=== PATIENT | female | born 1975 | race Caucasian/White ===

== ENCOUNTER 2019-11-18 17:30 | Observation (INO) | payer BC ==
[2019-11-18] MEDS ORDERED: SODIUM CHLORIDE 0.9% 500 ML 500 ML IV ONE (17:44)
[2019-11-18] MEDS ORDERED: NALOXONE 0.4 MG/ML 1 ML VIAL IV PRN (18:14)
--- NOTE | 2019-11-18 18:16 | ED ---
Recheck HPI - General Chief Complaint: Recheck/Abnormal Lab/Rx Stated Complaint: Narcotics Withdrawl Time Seen by Provider: 11/18/19 17:40 Source: patient, EMS Mode of arrival: EMS Limitations: no limitations - History of Present Illness Initial Comments: 44-year-old female was sent as a transfer that was accepted by Dr. Forde to our facility for prolonged QT for cardiac monitoring. patient presented for abdominal discomfort, nausea, vomiting, agitation. She states she recently stopped taking methadone to transition to suboxone. Patient states that this feels identical to when she has withdrew in the past. Patient initial EKG reviewed and was very poor quality with poor baseline for proper evaluation. Patient CMp WNL. No magnesium was drawn. CBC mild leukocytosis on lab review. Patient denies use of other drugs/or attempt at overdose. Patient upon arrival appears agitated, moving around bed attempting to get comfortable. Otherwise not vomiting and does not appears toxic. - Related Data Home Medications Medication Instructions Recorded Confirmed Buprenorphine HCl/Naloxone HCl 1 film SL TID 11/18/19 11/18/19 [Buprenorp-Nalox 8-2 mg Sl Film] Allergies Allergy/AdvReac Type Severity Reaction Status Date / Time aspirin Allergy Nausea & Verified 11/18/19 18:24 Vomiting Review of Systems ROS Statement: Those systems with pertinent positive or pertinent negative responses have been documented in the HPI. ROS Other: All systems not noted in ROS Statement are negative. Past Medical History Additional Past Medical History / Comment(s): cervical degeneration, R eye prostetic lens Smoking Status: Current every day smoker Past Alcohol Use History: None Reported Past Drug Use History: Marijuana - Past Family History Mother Family Medical History: No Reported History General Exam - General Exam Comments Initial Comments: General: The patient is awake and alert, appears agitated, cant get in a comfortable position Eye: +3 mm pupils are equal, round and reactive to light, extra-ocular movements are intact. No nystagmus. There is normal conjunctiva bilaterally. No signs of icterus. Cardiovascular: There is a regular rate and rhythm. No murmur, rub or gallop is appreciated. Respiratory: Lungs are clear to auscultation, respirations are non-labored, breath sounds are equal. No wheezes, stridor, rales, or rhonchi. Gastrointestinal: Soft, non-distended, non-tender abdomen without masses or organomegaly noted. There is no rebound or guarding present. Musculoskeletal: Normal ROM, no tenderness. Strength 5/5. Sensation intact. Pulses equal bilaterally 2+. Neurological: A&O x 3. CN II-XII intact grossly, There are no obvious motor or sensory deficits. Coordination appears grossly intact. Speech is normal. Skin: Skin is warm and dry and no rashes or lesions are noted. Psychiatric: Cooperative, agitated Limitations: no limitations Course Vital Signs 11/18/19 11/18/19 17:34 18:31 Temperature 98.5 F 98 F Pulse Rate 71 Pulse Rate [ 73 Pulse Oximetery ] Respiratory 22 16 Rate Blood Pressure 131/69 Blood Pressure 113/85 [Left Arm] O2 Sat by Pulse 97 97 Oximetry Medical Decision Making - Medical Decision Making Discussed case with Dr Forde who was accepting physician on case, he recommended admission, with telemetry and magenisum levels. Mag WNL. Labs reviewed from outside facility. Our repeat EKG WNL. No QT prolongation. ABdomen soft nontender. Patient agitated. Patient not actively vomiting. Patient Will be admitted for symptomatic control. patient on telemetry. Elsy THOMAS covering for Dr Palma accepted the admission. Disposition Clinical Impression: Opioid use with withdrawal, Nausea, Abdominal pain, Hx of prolonged Q-T interval on ECG Disposition: ADMITTED IP TO THIS HOSP Condition: Stable Is patient prescribed a controlled substance at d/c from ED?: No Time of Disposition: 18:15 Decision to Admit Reason: Admit from EC Decision Date: 11/18/19 Decision Time: 18:16
[2019-11-18] MEDS: SODIUM CHLORIDE 0.9% 1,000 ML IV SCH (21:35)
[2019-11-18] MEDS ORDERED: ACETAMINOPHEN TAB 325 MG TAB PO PRN (22:40)
[2019-11-19] MEDS: SODIUM CHLORIDE 0.9% 1,000 ML IV SCH ×3 (05:35→21:00)
[2019-11-19 07:54] LABS: African American GFR (CKD) >90 (>60 ml/min/1.73 sqM); Anion Gap 5 mmol/L; Blood Urea Nitrogen 12 mg/dL (7-17); Calcium 8.4 mg/dL (8.4-10.2); Carbon Dioxide 24 mmol/L (22-30); Chloride 111 mmol/L (98-107); Glucose 101 mg/dL (74-99); Non-African American GFR(CKD) >90 (>60 ml/min/1.73 sqM); Potassium 3.7 mmol/L (3.5-5.1); Sodium 140 mmol/L (137-145)
[2019-11-19 08:03] LABS: Basophils % (A) 0 %; Eosinophils # (A) 0.1 k/uL (0-0.7); Eosinophils % (A) 1 %; HCT 38.3 % (34.0-46.0); Lymphocytes # (A) 1.8 k/uL (1.0-4.8); Lymphocytes % (A) 15 %; MCH 31.6 pg (25.0-35.0); MCHC 34.1 g/dL (31.0-37.0); MCV 92.8 fL (80.0-100.0); Mean Platelet Volume 7.7; Monocytes # (A) 0.7 k/uL (0-1.0); Monocytes % (A) 6 %; Neutrophils # (A) 9.4 k/uL (1.3-7.7); Neutrophils % (A) 77 %; Platelet Count 311 k/uL (150-450); RBC 4.12 m/uL (3.80-5.40); RDW 12.3 % (11.5-15.5); WBC 12.1 k/uL (3.8-10.6)
[2019-11-19] MEDS ORDERED: KETOROLAC 30 MG/ML 1 ML VIAL IVP PRN (08:46)
[2019-11-19] MEDS ORDERED: ONDANSETRON 4 MG/2 ML VIAL IVP PRN (08:52)
[2019-11-19] MEDS ORDERED: traZODone HCL 50 MG TAB PO PRN (08:53)
[2019-11-19] MEDS ORDERED: hydrOXYzine HCL 25 MG TAB PO PRN ×2 (08:53→14:47)
[2019-11-19] MEDS ORDERED: LOPERAMIDE 2 MG CAP PO PRN (08:53)
[2019-11-19] MEDS ORDERED: cloNIDine HCL 0.1 MG TAB PO PRN (08:54)
--- NOTE | 2019-11-19 09:04 | P.HPIM ---
History of Present Illness This is a pleasant 44 years old female with past medical history of generalized body aches on methadone, cigarette smoker. She presents because of signs symptoms of opioid withdrawal. She went to see her new PCP Dr. Aguiar so she can switch her methadone and Suboxone, after Cosme advised her to take the Suboxone after last dose of methadone within 8-12 hours, she waited for 16 hours and by the time she started feeling unwell and she took the Suboxone which made her worse, she was complaining of from nausea and vomiting several times, agitated, restless and stomach pain, leg pain and pain all over her body with some sweatin g. She denies change in her bowel movements or chest pain or dyspnea or dizziness or palpitation. No dysuria. On admission her Vitas looks stable. Labs showing mild leukocytosis but BMP is unremarkable. EKG showing sinus rhythm with marked sinus arrhythmia at 76 bpm, QTC 418 which is not prolonged, no significant ST-T changes M APS was checked and patient was prescribed Suboxone 21 films. Patient was instructed if she can bring her Suboxone from home as it's not available from the hospital and she agrees Patient does not want Tylenol on [place] as she wants persistent cleared off opioids. Also she says she is ALLERGIC to aspirin and she got rash, I offered to give her Toradol but she was concerned about her ALLERGY. In the meantime we'll continue with taking her symptomatically with clonidine, Pepcid, Atarax, Imodium, Zofran and trazodone as needed Review of Systems CONSTITUTIONAL: No fever, no malaise, no fatigue. HEENT: No recent visual problems or hearing problems. Denied any sore throat. CARDIOVASCULAR: No orthopnea, PND, no palpitations, no syncope. PULMONARY: No shortness of breath, no cough, no hemoptysis. GASTROINTESTINAL: No diarrhea, no nausea, no vomiting, no abdominal pain. Normoactive bowel sounds. NEUROLOGICAL: No headaches, no weakness, no numbness. HEMATOLOGICAL: Denies any bleeding or petechiae. GENITOURINARY: Denies any burning micturition, frequency, or urgency. MUSCULOSKELETAL/RHEUMATOLOGICAL: Denies any joint pain, swelling, or any muscle pain. ENDOCRINE: Denies any polyuria or polydipsia. Past Medical History Additional Past Medical History / Comment(s): cervical degeneration, R eye prostetic lens History of Any Multi-Drug Resistant Organisms: None Reported Additional Past Surgical History / Comment(s): gallbladder surgery in 2000 Past Anesthesia/Blood Transfusion Reactions: No Reported Reaction Smoking Status: Current every day smoker Past Alcohol Use History: None Reported Past Drug Use History: Marijuana - Past Family History Mother Family Medical History: No Reported History Medications and Allergies Home Medications Medication Instructions Recorded Confirmed Type Buprenorphine HCl/Naloxone HCl 1 film SL TID 11/18/19 11/18/19 History [Buprenorp-Nalox 8-2 mg Sl Film] Allergies Allergy/AdvReac Type Severity Reaction Status Date / Time aspirin Allergy Nausea & Verified 11/18/19 18:24 Vomiting latex Allergy Rash/Hives Verified 11/19/19 03:27 Physical Exam Vitals: Vital Signs Temp Pulse Pulse Resp BP BP Pulse Ox 11/19/19 03:00 98.1 F 84 18 126/70 99 11/18/19 21:00 98.3 F 83 22 109/63 98 11/18/19 18:31 98 F 73 16 113/85 97 11/18/19 17:34 98.5 F 71 22 131/69 97 Intake and Output 11/18/19 11/19/19 11/19/19 22:59 06:59 14:59 Intake Total 500 1000 Balance 500 1000 Intake: IV 500 1000 Sodium Chloride 0.9% 427 464 5007 ml 500 ml @ 999 mls/hr IV .Q31M ONE Rx#:[id number] Other: Voiding Method Toilet Toilet # Voids 1 1 Weight 72.575 kg GENERAL: The patient is alert and oriented x3, not in any acute distress. Well developed, well nourished. HEENT: Pupils are round and equally reacting to light. EOMI. No scleral icterus. No conjunctival pallor. Normocephalic, atraumatic. No pharyngeal erythema. No thyromegaly. CARDIOVASCULAR: S1 and S2 present. No murmurs, rubs, or gallops. PULMONARY: Chest is clear to auscultation, no wheezing or crackles. ABDOMEN: Soft, nontender, nondistended, normoactive bowel sounds. No palpable organomegaly. MUSCULOSKELETAL: No joint swelling or deformity. EXTREMITIES: No cyanosis, clubbing, or pedal edema. NEUROLOGICAL: Gross neurological examination did not reveal any focal deficits. SKIN: No rashes. No petechiae Results CBC & Chem 7: 11/19/19 06:44 11/19/19 06:44 Labs: Abnormal Lab Results - Last 24 Hours (Table) 11/19/19 11/19/19 Range/Units 06:44 06:44 WBC 12.1 H (3.8-10.6) k/uL Neutrophils # 9.4 H (1.3-7.7) k/uL Chloride 111 H (98-107) mmol/L Glucose 101 H (74-99) mg/dL Thrombosis Risk Factor Assmnt - Choose All That Apply Each Factor Represents 1 point: Age 41-60 years, Obesity (BMI >25) Thrombosis Risk Factor Assessment Total Risk Factor Score: 2 Thrombosis Risk Factor Assessment Level: Low Risk Assessment and Plan Assessment: opioid withdrawal Generalized body pain on methadone, patient wants to switch her to Suboxone Nicotine dependence Plan: This is a pleasant 42 years old female who presents with opioid withdrawal, we'll treat her symptomatically. Continue with IV fluids. We'll consult psychiatrist. Restart Suboxone once the patient brings from home Patient is counseled about her smoking and she agrees to quit and was nicotine patch Labs and medication were reviewed.. Continue same treatment. Continue with symptomatic treatment. Resume home medication. Monitor lytes and vitals. DVT and GI prophylaxis. Further recommendations of the clinical course of the patient DVT prophylaxis: Subcutaneous heparin GI Prophylaxis: Pepcid Prognosis is guarded
[2019-11-19] MEDS: NICOTINE 21MG/24HR PATCH TRANSDERM SCH (10:31)
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
[2019-11-19] MEDS ORDERED: LORazepam 1 MG TAB PO PRN (14:39)
[2019-11-19] MEDS: FAMOTIDINE 20 MG/2 ML VIAL IV SCH (21:01)
[2019-11-19] MEDS: HEPARIN SODIUM,PORCINE 5,000 UNIT/ML 1 ML VIAL SQ SCH (21:01)
[2019-11-20 04:31] VITALS: RESP 16
[2019-11-20 05:36] LABS: Basophils % (A) 0 %; Eosinophils # (A) 0.1 k/uL (0-0.7); Eosinophils % (A) 1 %; HCT 40.5 % (34.0-46.0); HGB 13.8 gm/dL (11.4-16.0); Lymphocytes # (A) 2.6 k/uL (1.0-4.8); Lymphocytes % (A) 24 %; MCH 31.5 pg (25.0-35.0); MCV 92.7 fL (80.0-100.0); Mean Platelet Volume 7.7; Monocytes # (A) 0.6 k/uL (0-1.0); Monocytes % (A) 6 %; Neutrophils # (A) 7.4 k/uL (1.3-7.7); Neutrophils % (A) 68 %; Platelet Count 299 k/uL (150-450); RBC 4.37 m/uL (3.80-5.40); RDW 12.1 % (11.5-15.5); WBC 10.9 k/uL (3.8-10.6)
[2019-11-20 05:57] LABS: African American GFR (CKD) >90 (>60 ml/min/1.73 sqM); Anion Gap 8 mmol/L; Blood Urea Nitrogen 10 mg/dL (7-17); Calcium 8.7 mg/dL (8.4-10.2); Carbon Dioxide 23 mmol/L (22-30); Chloride 107 mmol/L (98-107); Glucose 87 mg/dL (74-99); Magnesium 2.2 mg/dL (1.6-2.3); Non-African American GFR(CKD) >90 (>60 ml/min/1.73 sqM); Potassium 3.5 mmol/L (3.5-5.1); Sodium 138 mmol/L (137-145)
[2019-11-20 08:13] VITALS: BP 93/40; PULSE 61; TEMP 98.4
[2019-11-20] MEDS: NICOTINE 21MG/24HR PATCH TRANSDERM SCH (08:30)
[2019-11-20] MEDS: FAMOTIDINE 20 MG/2 ML VIAL IV SCH (08:31)
[2019-11-20] MEDS: HEPARIN SODIUM,PORCINE 5,000 UNIT/ML 1 ML VIAL SQ SCH (08:33)
[2019-11-20] MEDS ORDERED: METOCLOPRAMIDE 10 MG TAB PO PRN (10:06)
--- NOTE | 2019-11-20 10:15 | P.DS ---
Providers Date of admission: 11/18/19 17:44 Attending physician: Yola Palma Consults: 11/19/19 08:56 Consult Physician Routine Consulting Provider: Kaushik Erickson Reason/Comments: saboxone management Do you want consulting provider notified?: Yes Primary care physician: Stated None Hospital Course: Diagnoses: opioid withdrawal Generalized body pain was on methadone, patient is switched her to Suboxone by her PCP Dr. Aguiar Nicotine dependence Hospital course: This is a pleasant 44 years old female with past medical history of generalized body aches on methadone, cigarette smoker. She presents because of signs symptoms of opioid withdrawal. Which haven't in the process of transitioning her from methadone to Suboxone, she went into opioid withdrawal and she presents with filling restless and agitated, with nausea vomiting and diarrhea and generalized body aches, lacrimation and nasal congestion. Patient was admitted to the hospital and treated with IV fluids, she was treated symptomatically with Imodium, Atarax and Ativan, she did not need clonidine or trazodone. Zofran admit her vomiting itself so it was changed to Reglan. Patient Suboxone (provided by the patient own medicine) was restarted as twice daily, and it can be increased to 3 times a day as per recommendation by her PCP Dr. Aguiar, patient tolerated that well and her symptoms significantly improved, she still have some mild symptoms like mild diarrhea, mild nasal congestion and abdominal discomfort however it's much improved since she came in, her restlessness is improved significantly although she still felt anxious. Extent patient to continue to improve. Patient herself want to go home and follow-up with her PCP, she told me she has an appointment with Dr. Aguiar this coming Sunday that she intends to follow up with Patient also has been evaluated by psychiatrist, I spoke with Dr. Browne who cleared her for discharge today Problems and management plan were discussed with the patient and he verbalized understanding and acceptance Patient was found stable and can be discharged home however he needs follow-up as an outpatient. Patient was instructed to follow up with PCP within one week a nd patient agrees Gen: patient is a AAOx3, no distress CVS: S1-S2, RRR, no murmur Lungs: B/L CTA, no wheezing Abdomen: soft, no distention, no tenderness, positive bowel sounds Extremity: no leg edema or induration Time spent more than 35 minutes Patient Condition at Discharge: Stable Plan - Discharge Summary Discharge Rx Participant: No New Discharge Prescriptions: New Nicotine 21Mg/24Hr Patch [Habitrol] 1 patch TRANSDERM DAILY #7 patch Loperamide [Imodium] 2 mg PO QID PRN #15 cap PRN Reason: Diarrhea Famotidine [Pepcid] 20 mg PO BID 7 Days #14 tablet Metoclopramide [Reglan] 10 mg PO AC-TID PRN #6 tab PRN Reason: Nausea And Vomiting Acetaminophen Tab [Tylenol] 650 mg PO Q6HR PRN tab PRN Reason: Fever And/ Or Pain Continue Buprenorphine HCl/Naloxone HCl [Buprenorp-Nalox 8-2 mg Sl Film] 1 film SL TID Discharge Medication List Buprenorphine HCl/Naloxone HCl [Buprenorp-Nalox 8-2 mg Sl Film] 1 film SL TID 11/18/19 [History] Acetaminophen Tab [Tylenol] 650 mg PO Q6HR PRN tab 11/20/19 [Rx] Famotidine [Pepcid] 20 mg PO BID 7 Days #14 tablet 11/20/19 [Rx] Loperamide [Imodium] 2 mg PO QID PRN #15 cap 11/20/19 [Rx] Metoclopramide [Reglan] 10 mg PO AC-TID PRN #6 tab 11/20/19 [Rx] Nicotine 21Mg/24Hr Patch [Habitrol] 1 patch TRANSDERM DAILY #7 patch 11/20/19 [Rx] Follow up Appointment(s)/Referral(s): Dagmar Malloy MD [REFERRING] - 1 Week (Follow-up on your appointment this coming Sunday as you informed the medical team, otherwise call and make an appointment within 1 week) None,Stated [Primary Care Provider] - 1-2 days Activity/Diet/Wound Care/Special Instructions: Diet as tolerated Activity is limited to till you see your doctor
[2019-11-20] MEDS ORDERED: FAMOTIDINE 20 MG TAB PO SCH (21:00)
== END 2019-11-20 12:21 | disposition home or self-care (01) ==
LOC: EC 17:30 → 3NCARDOBS 17:44
PROVIDERS: ADMIT Hospitalist; ATTEND Hospitalist
DX: F11.23 Opioid dependence with withdrawal (principal); T40.0X5A Adverse effect of opium, initial encounter; R11.2 Nausea with vomiting, unspecified; R10.9 Unspecified abdominal pain; R45.1 Restlessness and agitation; R19.7 Diarrhea, unspecified; R09.81 Nasal congestion; H04.9 Disorder of lacrimal system, unspecified; F41.9 Anxiety disorder, unspecified; D72.829 Elevated white blood cell count, unspecified; M50.30 Other cervical disc degeneration, unspecified cervical region; F17.210 Nicotine dependence, cigarettes, uncomplicated; E66.9 Obesity, unspecified; Z68.25 Body mass index [BMI] 25.0-25.9, adult; Z71.6 Tobacco abuse counseling; Z79.899 Other long term (current) drug therapy; Z96.1 Presence of intraocular lens; Z86.79 Personal history of other diseases of the circulatory system; Z88.6 Allergy status to analgesic agent; Z91.040 Latex allergy status
CPT/HCPCS: 93005 ×2; 96361; 96372 ×2; 96374; 96375; 96376; 99285; 80048 ×2; 83735 ×2; 85025 ×2; 84703; G0378 ×3; S4990 ×2; J1644 ×2; J2405

== ENCOUNTER → 2021-02-25 | Outpatient (CLI) | payer BC ==
--- NOTE | 2021-02-25 16:45 | CT ---
EXAMINATION TYPE: CT sinus wo con DATE OF EXAM: 02/25/2021 COMPARISON: None HISTORY: 45-year-old female Chronic sinusitis. CT DLP: 636.4 mGycm Automated exposure control for dose reduction was used. TECHNIQUE: Noncontrast axial views of the paranasal sinuses were obtained. Coronal reconstructions pe rformed. FINDINGS: PARANASAL SINUSES: The frontal, ethmoid, maxillary and sphenoid sinuses are clear and well pneumatized. There is no mucosal thickening or air-fluid level. Reactive desirae- osteogenesis is not seen. There is no destruction of the osseous kimbrough of the paranasal sinuses. THE NASAL CAVITY: The osteomeatal complexes are patent. Rightward nasal septal deviation. The imaged brain and left orbit are normal in appearance. 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 Mastoid air cells and middle ear cavities are well pneumatized. Reformatted images confirm above findings. IMPRESSION: Rightward nasal septal deviation. Otherwise, no paranasal sinus disease appreciated. Right globe pros thesis.
== END | disposition home or self-care (01) ==
LOC: RADCTMAIN 15:36
PROVIDERS: ATTEND Otolaryngology
DX: J34.2 Deviated nasal septum (principal)
CPT/HCPCS: 70486

== ENCOUNTER 2021-03-08 07:26 | Day surgery (SDC) | payer BC ==
[2021-03-04 10:15] VITALS: BMI 24.0
[~2021-03-08 07:26] MED LIST: DEXAMETHASONE SOD PHOSPHATE 4 MG/ML 1 ML VIAL IV ONE; HYDROmorphone 0.5 MG/0.5 ML SYRINGE IVP PRN; LACTATED RINGERS 1,000 ML IV SCH; ONDANSETRON 4 MG/2 ML VIAL IVP ONE; Pre Op ABX Message 1 EACH MISC MISCELLANE ONE
[2021-03-08] MEDS ORDERED: LIDOCAINE 1% (10MG/ML) FOR IV START INTRADERMA ONE (08:07)
[2021-03-08] MEDS ORDERED: LIDOCAINE 1% INJ 10MG/ML (20 ML MDV) ONE (09:32)
[2021-03-08] MEDS ORDERED: MIDAZOLAM 2 MG/2 ML VIAL ONE (09:32)
[2021-03-08] MEDS ORDERED: PROPOFOL 10 MG/ML 20 ML VIAL IV ONE (09:32)
[2021-03-08] MEDS ORDERED: fentaNYL (PF) 50 MCG/ML 2 ML AMP ONE (09:32)
[2021-03-08] MEDS ORDERED: LIDOCAINE 1%-EPI 1:100,000 20 ML VIAL SUBMUCOSAL ONE (09:51)
--- NOTE | 2021-03-08 10:20 | P.OP ---
Date of Procedure: 03/08/21 Preoperative Diagnosis: Dysfunctional uterine bleeding Suspected endometrial polyp Postoperative Diagnosis: Same Procedure(s) Performed: Diagnostic hysteroscopy with D&C, polypectomy Anesthesia: MAC Surgeon: Kasie Sanches Estimated Blood Loss (ml): 5 IV fluids (ml): 400 Urine output (ml): 100 Pathology: other (Endometrial curettings) Condition: stable Disposition: PACU Indications for Procedure: Social uterine bleeding and findings suspicious for endometrial polyp on pelvic ultrasound Operative Findings: Intracavitary lesion consistent with endometrial polyp Description of Procedure: After the patient was met in the preoperative holding area and all questions were answered, she was taken to the operating room where anesthetic was administered without incident. She was in positioned, prepped and draped in the dorsal lithotomy position. Appropriate timeout procedure had been undertaken. Weighted speculum was placed in the vagina and the cervix was visualized. It was grasped with a single-tooth tenaculum and a paracervical block with lidocaine plus epinephrine was placed. The uterus was sounded to 8 cm. The cervix was then sequentially dilated to allow for passage of the diagnostic hysteroscope. The above findings were noted. The hysteroscope was removed and the sharp banjo curette was introduced. The uterine cavity was circumferentially curettaged. Hysteroscope was reintroduced and the polyp tissue was still easily visible. Hysteroscope was removed and the stone polyp forceps were introduced and tissue was obtained consistent with polyp. Final visualization with hysteroscope revealed removal of polyp type tissue. On hysteroscope was then removed. Cervix was observed and no active bleeding was noted. Tenaculum was removed. All instruments removed from the vagina. Patient was awoken from anesthetic without incident. She was transferred to recovery in good condition. All counts reported to me as correct.
[2021-03-08 10:21] VITALS: TEMP 98.2
[2021-03-08 10:34] VITALS: RESP 16
[2021-03-08] MEDS ORDERED: KETOROLAC 15 MG/ML 1 ML VIAL ONE (10:43)
[2021-03-08] MEDS ORDERED: KETOROLAC 15 MG/ML 1 ML VIAL IVP ONE (10:45)
[2021-03-08] MEDS ORDERED: IBUPROFEN 200 MG TAB PO ONE (11:33)
[2021-03-08 12:40] VITALS: BP 97/60; PULSE 68
== END 2021-03-08 13:24 | disposition home or self-care (01) ==
LOC: OR 07:26
PROVIDERS: ATTEND Obstetrics & Gynecology
DX: N84.0 Polyp of corpus uteri (principal); N93.8 Other specified abnormal uterine and vaginal bleeding; K58.9 Irritable bowel syndrome, unspecified; M26.609 Unspecified temporomandibular joint disorder, unspecified side; I34.1 Nonrheumatic mitral (valve) prolapse; M50.30 Other cervical disc degeneration, unspecified cervical region; F41.9 Anxiety disorder, unspecified; K21.9 Gastro-esophageal reflux disease without esophagitis; Z90.49 Acquired absence of other specified parts of digestive tract; Z98.890 Other specified postprocedural states; Z82.5 Family history of asthma and other chronic lower respiratory diseases; Z83.49 Family history of other endocrine, nutritional and metabolic diseases; Z80.9 Family history of malignant neoplasm, unspecified; Z80.43 Family history of malignant neoplasm of testis; F17.210 Nicotine dependence, cigarettes, uncomplicated; Z79.899 Other long term (current) drug therapy; Z79.1 Long term (current) use of non-steroidal anti-inflammatories (NSAID); Z88.6 Allergy status to analgesic agent; Z88.1 Allergy status to other antibiotic agents; Z88.0 Allergy status to penicillin; J30.2 Other seasonal allergic rhinitis; Z91.048 Other nonmedicinal substance allergy status
CPT/HCPCS: 58558; 81025; 88305; J2250; J1100; J2001; J3010; J1885; J2704

== ENCOUNTER → 2024-05-22 | Outpatient (CLI) | payer BC ==
[2024-05-22 21:02] LABS: BUN/Creat Ratio 18.75 Ratio (12.00-20.00); Calcium 9.3 mg/dL (8.7-10.3); Carbon Dioxide 26.4 mmol/L (21.6-31.8); Chloride 106 mmol/L (96-109); Glucose 73 mg/dL (70-110); Potassium 3.9 mmol/L (3.5-5.5); Sodium 143 mmol/L (135-145)
== END | disposition home or self-care (01) ==
LOC: LABWHC1 15:53
PROVIDERS: ATTEND Internal Medicine Interventional Cardiology
DX: I49.3 Ventricular premature depolarization (principal); R00.1 Bradycardia, unspecified
CPT/HCPCS: 36415; 80048; 84443